=== PATIENT | female | born 1965 | race Caucasian/White ===

== ENCOUNTER 2016-12-10 19:21 | Inpatient (IN) | payer OTHER ==
[2016-12-10] MEDS ORDERED: NACL 0.9% 1000 ML 2,000 ML IV ONE (23:06)
[2016-12-10] MEDS ORDERED: REGLAN IV ONE (23:06)
--- NOTE | 2016-12-10 23:08 | Emergency Department Report ---
ED General Adult HPI - General Chief complaint: Seizure Stated complaint: SEIZURE Time Seen by Provider: 12/10/16 22:53 Source: patient, RN notes reviewed Mode of arrival: Stretcher Limitations: No Limitations - History of Present Illness Initial comments: This is a 51-year-old female. She is previously unknown to me. Has a past medical history of hypothyroidism, hypertension, anxiety. The patient is currently in a psychiatric hospital, for suicidal ideation. Apparently she tried to overdose because of a divorce. This was a few days ago. The patient was at her psychiatric facility today. The patient reports that she got dizzy, felt like the room was spinning, felt like she was going to pass out. Prior to this, she did not have any headache, neck pain, chest pain, abdominal pain or shortness of breath. There is no leg pain. There is no leg swelling. No recent trips greater than 4 hours. No recent hospital admissions. The patient reports that she is up-to-date with tetanus vaccinations. As per verbal report from her psychiatric sitter, it appeared like she was having a generalized tonic-clonic seizure with family's moving. The patient thinks that she bit her tongue but is not certain. She complains of right occipital scalp pain, and right-sided neck pain. There is no extremity weakness at this time. There is no saddle anesthesia. -: Sudden Location: right, upper extremity Severity scale (0 -10): 8 Quality: aching Consistency: now resolved Improves with: none Worsens with: none Associated Symptoms: syncope. denies: confusion - Related Data Home Medications Medication Instructions Recorded Confirmed Last Taken Clorazepate Dipotassium 3.75 mg PO DAILY 12/10/16 12/10/16 Unknown Cyanocobalamin (Vitamin B-12) 1,000 mcg PO DAILY 12/10/16 12/10/16 Unknown [B-12] Folic Acid [Folvite] 1 mg PO QDAY 12/10/16 12/10/16 Unknown Levothyroxine [Synthroid] 125 mcg PO QAM 12/10/16 12/10/16 Unknown Lisinopril [Zestril TAB] 40 mg PO QDAY 12/10/16 12/10/16 Unknown Allergies Allergy/AdvReac Type Severity Reaction Status Date / Time No Known Allergies Allergy Verified 12/10/16 22:01 ED Review of Systems ROS: Stated complaint: SEIZURE Other details as noted in HPI Constitutional: denies: fever Eyes: denies: vision change ENT: denies: epistaxis Respiratory: see HPI Cardiovascular: syncope Gastrointestinal: denies: abdominal pain, nausea, diarrhea Genitourinary: as per HPI Musculoskeletal: denies: back pain, joint swelling, arthralgia Skin: lesions. denies: rash Psychiatric: denies: homicidal thoughts ED Past Medical Hx - Past Medical History Previous Medical History?: Yes Hx Hypertension: Yes Additional medical history: HYPOTHYROID, ANXIETY - Surgical History Past Surgical History?: No - Social History Smoking Status: Former Smoker Substance Use Type: None - Medications Home Medications: Home Medications Medication Instructions Recorded Confirmed Last Taken Type Clorazepate Dipotassium 3.75 mg PO DAILY 12/10/16 12/10/16 Unknown History Cyanocobalamin (Vitamin B-12) 1,000 mcg PO DAILY 12/10/16 12/10/16 Unknown History [B-12] Folic Acid [Folvite] 1 mg PO QDAY 12/10/16 12/10/16 Unknown History Levothyroxine [Synthroid] 125 mcg PO QAM 12/10/16 12/10/16 Unknown History Lisinopril [Zestril TAB] 40 mg PO QDAY 12/10/16 12/10/16 Unknown History ED Physical Exam - General Limitations: No Limitations General appearance: alert, in no apparent distress - Head Head exam: Present: normocephalic, other (physical right-sided occipital hematoma. There are no obvious lacerations. Dried blood is noted.) - Eye Eye exam: Present: normal appearance, PERRL, EOMI. Absent: nystagmus - ENT ENT exam: Present: normal exam, normal orophraynx, mucous membranes moist, TM's normal bilaterally, normal external ear exam - Neck Neck exam: Present: normal inspection, tenderness (there is right-sided paraspinal tenderness. There is mild midline spinal tenderness. There are no step-offs.), full ROM. Absent: meningismus - Respiratory Respiratory exam: Present: normal lung sounds bilaterally. Absent: respiratory distress, wheezes, rales, rhonchi, stridor, chest wall tenderness, accessory muscle use, decreased breath sounds, prolonged expiratory - Cardiovascular Cardiovascular Exam: Present: normal rhythm, tachycardia, normal heart sounds. Absent: systolic murmur, diastolic murmur, rubs, gallop - GI/Abdominal GI/Abdominal exam: Present: soft, normal bowel sounds. Absent: distended, tenderness, guarding, rebound, rigid, pulsatile mass - Extremities Exam Extremities exam: Present: normal inspection, full ROM, normal capillary refill. Absent: tenderness, pedal edema, joint swelling, calf tenderness - Back Exam Back exam: Present: normal inspection, full ROM. Absent: tenderness, CVA tenderness (R), CVA tenderness (L), muscle spasm, paraspinal tenderness, vertebral tenderness - Neurological Exam Neurological exam: Present: alert, oriented X3, normal gait (there is no pass pointing. There is normal [id number]. Negative Romberg. Normal tandem gait. ), other (Extraocular movements intact. Tongue midline. No facial droop. Facial sensation intact to light touch in the V1, V2, V3 distribution bilaterally. 5 and 5 strength in 4 extremities.. Sensation is intact to light touch in 4 extremities.). Absent: motor sensory deficit - Psychiatric Psychiatric exam: Present: anxious. Absent: homicidal ideation, suicidal ideation - Skin Skin exam: Present: warm, dry, intact, normal color. Absent: rash ED Course Vital Signs 12/10/16 12/10/16 12/10/16 20:50 21:39 21:40 Temperature 98.3 F Pulse Rate 114 H 108 H Respiratory 16 13 10 L Rate Blood Pressure 153/94 Blood Pressure 154/96 [Right] O2 Sat by Pulse 97 98 99 Oximetry 12/10/16 12/10/16 12/10/16 21:44 21:50 22:00 Temperature 98.3 F Pulse Rate 114 H 120 H 124 H Respiratory 16 14 31 H Rate Blood Pressure 154/96 153/94 167/122 Blood Pressure [Right] O2 Sat by Pulse 97 98 99 Oximetry 12/10/16 12/10/16 12/10/16 22:10 22:20 22:30 Temperature Pulse Rate 118 H 108 H 110 H Respiratory 14 16 9 L Rate Blood Pressure 167/122 153/94 153/94 Blood Pressure [Right] O2 Sat by Pulse 97 97 97 Oximetry 12/10/16 12/10/16 12/10/16 22:40 22:50 23:00 Temperature Pulse Rate 112 H 109 H 125 H Respiratory 21 18 22 Rate Blood Pressure 153/94 153/94 153/94 Blood Pressure [Right] O2 Sat by Pulse 97 97 98 Oximetry 12/10/16 12/10/16 12/11/16 23:10 23:16 00:28 Temperature Pulse Rate 109 H 106 H 103 H Respiratory 16 18 18 Rate Blood Pressure 153/94 153/94 167/122 Blood Pressure [Right] O2 Sat by Pulse 97 98 97 Oximetry 12/11/16 12/11/16 12/11/16 00:30 00:40 00:50 Temperature Pulse Rate 100 H 89 98 H Respiratory 25 H 17 18 Rate Blood Pressure 140/90 140/90 140/90 Blood Pressure [Right] O2 Sat by Pulse 98 99 97 Oximetry 12/11/16 12/11/16 12/11/16 01:00 01:10 01:13 Temperature Pulse Rate 90 97 H Respiratory 14 13 16 Rate Blood Pressure 132/100 132/100 Blood Pressure [Right] O2 Sat by Pulse 98 100 98 Oximetry 12/11/16 12/11/16 12/11/16 01:20 01:44 01:50 Temperature Pulse Rate 119 H 90 101 H Respiratory 25 H 14 15 Rate Blood Pressure 132/100 132/100 132/100 Blood Pressure [Right] O2 Sat by Pulse 97 99 98 Oximetry 12/11/16 12/11/16 12/11/16 02:00 02:10 02:20 Temperature Pulse Rate 95 H 95 H 93 H Respiratory 13 16 10 L Rate Blood Pressure 132/100 132/100 132/100 Blood Pressure [Right] O2 Sat by Pulse 99 98 97 Oximetry 12/11/16 12/11/16 12/11/16 02:30 02:40 02:50 Temperature Pulse Rate 90 99 H 93 H Respiratory 17 15 15 Rate Blood Pressure 132/100 132/100 132/100 Blood Pressure [Right] O2 Sat by Pulse 97 98 96 Oximetry 12/11/16 12/11/16 12/11/16 03:00 03:10 03:20 Temperature Pulse Rate 95 H 97 H 97 H Respiratory 18 14 18 Rate Blood Pressure 132/100 132/100 132/100 Blood Pressure [Right] O2 Sat by Pulse 96 98 97 Oximetry 12/11/16 12/11/16 12/11/16 03:30 03:46 03:50 Temperature Pulse Rate 96 H 98 H 104 H Respiratory 16 18 25 H Rate Blood Pressure 132/100 132/100 125/91 Blood Pressure [Right] O2 Sat by Pulse 97 98 98 Oximetry 12/11/16 04:00 Temperature Pulse Rate Respiratory 11 L Rate Blood Pressure 128/98 Blood Pressure [Right] O2 Sat by Pulse 99 Oximetry - Reevaluation(s) Reevaluation #1: 12/10/16 23:43 Differential diagnosis: Intracranial injury, cervical spine injury, structural cardiac disease, arrhythmia, acute coronary syndrome, medication side effect, seizure, pseudoseizure, scalp abrasion, pneumonia, urinary tract infection Assessment and plan: 51-year-old female with seizure versus syncope. There are no pulmonary embolus or DVT risk factors, seems low risk by well's criteria. She has a GCS of 15, with an NIH score of 0. She has some neck pain and scalp pain. CT scan of the brain as cervical spine are ordered. Laboratory studies ordered. Toxicology studies ordered. Patient is clinically sober. She is currently with a 1013 at this time. Reevaluation #2: 12/11/16 01:16 ct head negative, ct cervical spine negative K: 3.5 Cl: 102.7 Dr Ellis accepts patient to his service 12/11/16 06:03 ED Medical Decision Making - Lab Data Result diagrams: 12/10/16 23:23 12/10/16 23:23 Vital Signs 12/10/16 12/10/16 12/10/16 20:50 21:39 21:40 Temperature 98.3 F Pulse Rate 114 H 108 H Respiratory 16 13 10 L Rate Blood Pressure 153/94 Blood Pressure 154/96 [Right] O2 Sat by Pulse 97 98 99 Oximetry 12/10/16 12/10/16 12/10/16 21:44 21:50 22:00 Temperature 98.3 F Pulse Rate 114 H 120 H 124 H Respiratory 16 14 31 H Rate Blood Pressure 154/96 153/94 167/122 Blood Pressure [Right] O2 Sat by Pulse 97 98 99 Oximetry 12/10/16 12/10/16 12/10/16 22:10 22:20 22:30 Temperature Pulse Rate 118 H 108 H 110 H Respiratory 14 16 9 L Rate Blood Pressure 167/122 153/94 153/94 Blood Pressure [Right] O2 Sat by Pulse 97 97 97 Oximetry 12/10/16 12/10/16 12/10/16 22:40 22:50 23:00 Temperature Pulse Rate 112 H 109 H 125 H Respiratory 21 18 22 Rate Blood Pressure 153/94 153/94 153/94 Blood Pressure [Right] O2 Sat by Pulse 97 97 98 Oximetry 12/10/16 23:10 Temperature Pulse Rate 109 H Respiratory 16 Rate Blood Pressure 153/94 Blood Pressure [Right] O2 Sat by Pulse 97 Oximetry Labs 12/10/16 12/10/16 22:08 23:23 WBC 11.8 H RBC 3.47 L Hgb 12.7 Hct 37.9 MCV 109 H MCH 37 H MCHC 34 RDW 15.2 Plt Count 273 Lymph % (Auto) 12.5 L [place] % (Auto) 4.9 Eos % (Auto) 0.3 Baso % (Auto) 0.2 Lymph # 1.5 [place] # 0.6 Eos # 0.0 Baso # 0.0 Seg Neutrophils % 82.1 H Seg Neutrophils # 9.7 H POC Glucose 115 H - EKG Data 12/10/16 23:45 Normal sinus, 92 bpm, normal axis, QTC 469 ms, biphasic T-wave in V2, poor R- wave progression, abnormal EKG, not morphologically consistent with STEMI. - Radiology Data Radiology results: image reviewed interpreted by me: X-ray of the chest is negative for acute disease Critical care attestation.: If time is entered above; I have spent that time in minutes in the direct care of this critically ill patient, excluding procedure time. ED Disposition Clinical Impression: Syncope, Blunt head injury Disposition: OP ADMITTED IP TO THIS HOSP Is pt being admited?: Yes Condition: Good
[2016-12-10 23:36] LABS: Basophils % (Auto) 0.2 % (0.0-1.8); Eosinophils % (Auto) 0.3 % (0.0-4.3); Hematocrit 37.9 % (30.3-42.9); Hemoglobin 12.7 gm/dl (10.1-14.3); Mean Corpuscular HGB Conc 34 % (30-34); Mean Corpuscular Hemoglobin 37 pg (28-32); Mean Corpuscular Volume 109 fl (79-97); Platelet Count 273 K/mm3 (140-440); Red Blood Count 3.47 M/mm3 (3.65-5.03); Red Cell Distribution Width 15.2 % (13.2-15.2); White Blood Count 11.8 K/mm3 (4.5-11.0)
[2016-12-10 23:50] LABS: INR 0.94 (0.87-1.13)
[2016-12-10 23:57] LABS: Alanine Aminotransferase 16 units/L (7-56); Albumin 3.9 g/dL (3.9-5); Albumin/Globulin Ratio 1.3 %; Alkaline Phosphatase 130 units/L (35-129); Anion Gap 20 mmol/L; Bilirubin,Total 0.9 mg/dL (0.1-1.2); Blood Urea Nitrogen 4 mg/dL (7-17); Carbon Dioxide 22 mmol/L (22-30); Chloride 102.7 mmol/L (98-107); Glucose 112 mg/dL (65-100); Potassium 3.5 mmol/L (3.6-5.0); Sodium 141 mmol/L (137-145); Total Protein 6.9 g/dL (6.3-8.2)
[2016-12-11 00:03] LABS: Urine Drugs of Abuse Note Disclamer
[2016-12-11 00:28] LABS: Bilirubin,Urine NEG (Negative); Blood,Urine NEG (Negative); Ketones,Urine 20 mg/dL (Negative); Leukocyte Esterase,Urine NEG (Negative); Nitrite,Urine NEG (Negative); Protein,Urine <15 mg/dL mg/dL (Negative); RBC,Urine < 1.0 /HPF (0.0-6.0); Urobilinogen,Urine < 2.0 mg/dL (<2.0); WBC,Urine < 1.0 /HPF (0.0-6.0)
--- NOTE | 2016-12-11 00:54 | Cat Scan Report ---
FINAL REPORT EXAM: CT HEAD/BRAIN WO CON HISTORY: Syncope TECHNIQUE: Noncontrast CT axial images of the brain. PRIORS: None. FINDINGS: No parenchymal mass, mass effect, hemorrhage, midline shift or hydrocephalus. No evidence of acute cortical infarct. No abnormal, extra-axial fluid or air collection. Osseous calvarium grossly intact. Mild soft tissue edema and possible contusion in the right parieto-occipital scalp near the vertex. IMPRESSION: 1. No acute intracranial findings.
--- NOTE | 2016-12-11 01:07 | Cat Scan Report ---
FINAL REPORT EXAM: CT CERVICAL SPINE WO CON HISTORY: Syncope FALL TECHNIQUE: Spiral CT scanning of the cervical spine, with axial images and multiplanar reformations. PRIORS: None. FINDINGS: Mild dextroconvex curvature may be positional versus soft tissue spasm. Incomplete segmentation or congenital block vertebra in the C4-5 level. Multilevel degenerative disc disease and spondylosis. No acute compression deformity or gross malalignment of cervical vertebral bodies. No acute fracture identified. No acute, osseous central spinal canal encroachment. Paraspinal soft tissues grossly unremarkable. IMPRESSION: 1. No acute compression deformity or apparent fracture in the cervical spine. 2. Degenerative spondylosis.
--- NOTE | 2016-12-11 03:53 | History and Physical Report ---
CHIEF COMPLAINT: Syncopal attack. Other complaint includes seizure activity. HISTORY OF PRESENT ILLNESS: The patient is a 51-year-old female in the psychiatric facility because of suicidal ideation following emotional disturbances that she is sustaining because of going through divorce. The patient said he started feeling dizzy while standing up and then started feeling sensation of vertigo and eventually fell to the ground and passed out for about 5 minutes during which she said that she was seen shaking in a tonic-clonic form and the patient said she thought she bit her tongue. There was no history of urinary incontinence, no history of fever or chills. No history of chest pain. No history of nausea, vomiting and the patient eventually recovered and was brought to the Emergency Room. She denies history of similar symptoms in the past and denies history of fever before this syncopal episode. PAST MEDICAL HISTORY: Pertinent for hypertension, hypothyroidism, anxiety disorder. PAST SURGICAL HISTORY: Unremarkable. FAMILY HISTORY: Noncontributory. SOCIAL HISTORY: The patient is currently in a psychiatric facility. She used to smoke, but does not smoke currently, drinks alcohol occasionally and does not use illicit drugs. MEDICATIONS: The patient is on clorazepate 3.75 mg by mouth daily, cyanocobalamin 1000 mcg by mouth daily, folic acid 1 mg by mouth daily, levothyroxine 125 mcg by mouth every morning and lisinopril 40 mg by mouth daily. ALLERGIES: There are no known drug allergies. REVIEW OF SYSTEMS: CONSTITUTIONAL: There is no fever, no chills, no diaphoresis. HEENT: There is no headache or sore throat. CARDIOVASCULAR SYSTEM: There is no chest pain, orthopnea. RESPIRATORY: There is no shortness of breath or cough. GASTROINTESTINAL SYSTEM: There is no nausea, no vomiting, no abdominal pain, diarrhea or constipation. NEUROLOGICAL SYSTEM: Syncopal episode noted. Seizure activity noted. Loss of consciousness noted. MUSCULOSKELETAL SYSTEM: There is no joint pain or swelling. DERMATOLOGICAL SYSTEM: There is no skin rash or itching. GENITOURINARY SYSTEM: There is no dysuria, hematuria or flank pain. Rest of system review is normal. PHYSICAL EXAMINATION: GENERAL: At the time of exam, the patient was found to be alert, oriented x 3 and not in acute distress. VITAL SIGNS: Shows normal temperature with pulse of 97, respirations of 13, O2 sat of 100%, blood pressure 132/100. HEENT: Shows pupils to be equal, round, reactive to light and accommodation. Extraocular muscles are intact. NECK: Supple with no JVD or carotid bruit. CARDIOVASCULAR SYSTEM: Show first and second heart sounds with no gallops or murmur. RESPIRATORY SYSTEM: Show good air entry on both sides with no abnormal breath sounds. GASTROINTESTINAL SYSTEM: Show abdomen to be full, soft, nontender with no organomegaly or rigidity. NEUROLOGICAL: Showed no focal deficit. MUSCULOSKELETAL SYSTEM: Showed no joint swelling or tenderness. DERMATOLOGICAL SYSTEM: Show no skin rash. GENITOURINARY: Showing no costovertebral angle tenderness. PERTINENT LABORATORY DATA AND IMAGING STUDIES: The patient has CBC done with slightly elevated white count of 11,800 with normal hemoglobin and normal hematocrit. The patient's CBC differential showed elevated segmented level and coagulation study was normal. Chemistry shows normal electrolytes with unremarkable renal function test and cardiac enzymes shows elevated total creatine kinase with normal troponin. The patient's TSH level is high with a value of 13.38. Urinalysis was unremarkable. IMAGING STUDIES: The patient has CT of the head done, which was read as showing no acute intracranial lesion. Also, the patient has cervical spine CT done that shows only degenerative spondylosis with no fracture or deformity seen. DIAGNOSES: 1. Syncopal attack. 2. Seizure disorder/Attack. PLAN: The patient will be admitted to medical floor. We will have 2D echo done in the morning. We will have cardiac enzymes checked q. 6 hours x 2 more levels. The patient will be on playground monitor. We will also have a bilateral carotid Doppler done in the morning. The patient will be on seizure precaution. DVT prophylaxis will be through sequential compressive device. The patient will have Neurology consult with Dr. Samayoa as she is in the morning and will be on p.r.n. medications like Tylenol by mouth for fever, headache and IV Zofran 4 mg every 6 hours for nausea and vomiting. The patient will have her home medication reconciled and applied accordingly and will be on IV normal saline at 75 mL an hour. JOB# [id number] OCN/NTS MTDD
[2016-12-11] MEDS: ZOFRAN IV PRN ×2 (05:09→18:52)
[2016-12-11] MEDS: SYNTHROID PO SCH (05:09)
[2016-12-11] MEDS: TYLENOL PO PRN ×2 (05:58→19:53)
--- NOTE | 2016-12-11 07:32 | XRay Report ---
Single view chest: History: Syncope, PNA. Findings: Normal cardiomediastinal silhouette. Trachea is midline. No consolidation, pneumothorax or pleural effusion. Impression: No acute cardiopulmonary findings. This
[2016-12-11 08:08] LABS: Creatine Kinase MB 2.9 ng/mL (0.0-4.0)
[2016-12-11 08:09] LABS: Creatine Kinase 233 units/L (30-135)
--- NOTE | 2016-12-11 09:20 | Admit Criteria Form ---
Admission Criteria Documentation: SYNCOPE Clinical Indications for Admission to Inpatient Care ( Place 'X' for any and all applicable criteria): Admission is indicated for syncope and ANY ONE of the following (1)(2)(3)(4)(5) (6)(7) : [X]I. Inpatient admission required rather than observation care (Also use Syncope: Observation Care Criteria as appropriate) because of ANY ONE of the following: [ ]a) Hemodynamic instability that is severe or persistent [ ]b) Cardiac arrhythmias of immediate concern identified or strongly suspected (eg, needs electrophysiologic study) [ ]c) Acute coronary syndrome identified (Also use Myocardial Infarction or Angina Criteria form ) [ ]d) Structural cardiac disorder (eg, aortic stenosis) suspected as cause that requires immediate correction [ ]e) Respiratory symptoms (eg, dyspnea, tachypnea) that are severe or persistent [ ]f) Neurologic signs or symptoms that are severe or persistent ( eg, stroke, seizures, altered mental status) [ ]g) Severe electrolyte abnormalities requiring inpatient care [ ]h) Supplemental oxygen or respiratory treatment for over 24 hrs that are performable only in acute inpatient setting [ ]i) IV fluid to replace significant ongoing (eg, for over 24 hrs ) losses (>3 L/m2 per day) [ ]j) Continuous intravenous infusion of anticoagulation, platelet inhibitor, vasoactive, or antiarrhythmic medication(15)(16) [ ]k) Pulmonary artery catheter monitoring [ ]l) Temporary pacemaker placement(17) [ ]m) Emergent cardioversion(18) [X]n) Other conditions, treatment or monitoring requiring inpatient admission [ ]II. Suspicion of imminently dangerous cause (eg, rare causes like pericardial tamponade, pulmonary embolism) [ ]III. Syncope causing severe injury requiring hospitalization Extended stay beyond goal length of stay may be needed for(28) [ ]a) Dangerous arrhythmia(15)(23)(27)(29) [ ]b) Myocardial ischemia [ ]c) Seizure disorder [ ]d) Syncope-related injuries The original [employer] content created by [employer] has been revised. The portions of the content which have been revised are identified through the use of italic text or in bold, and [employer] has neither reviewed nor approved the modified material. All other unmodified content is copyright [email or web address]. Please see references footnoted in the original [facility] edition 2016 Admission Criteria Met: Yes
[2016-12-11] MEDS: VITAMIN B-12 PO SCH (11:29)
[2016-12-11] MEDS: TRANXENE PO SCH (11:30)
[2016-12-11] MEDS: FOLVITE PO SCH (11:30)
[2016-12-11] MEDS: ZESTRIL PO SCH (11:32)
--- NOTE | 2016-12-11 12:05 | Consultation ---
History of Present Illness Consult date: 12/11/16 Requesting physician: DAVID MCMILLAN Reason for Consult: seizure like activity Chief complaint: passed out History of present illness: 51 YO F Hx BZD dependence of xanax currently being Tx @ Detox center brought to ED on 12/10 for syncope assoc w/ motor convulsive activity. Last dose of Xanax was 2-3 days prior. She has felt generally unwell including lightheadedness and feeling faint. @ 4 PM while standing she apparently fell, lost consciosuness for 3-5 mins and had reported "sz like activity." She bit her tongue but no incontinence. There were no clear aggravating, relieving or temporal factors otherwise. Severity limited consciousness. Past History Past Medical History: other (BZD dependence) Past Surgical History: No surgical history Social history: single, Lives alone, prescription drug abuse. denies: IV drug use Family history: no significant family history Medications and Allergies Allergies Allergy/AdvReac Type Severity Reaction Status Date / Time No Known Allergies Allergy Verified 12/10/16 22:01 Home Medications Medication Instructions Recorded Confirmed Last Taken Type Clorazepate Dipotassium 3.75 mg PO DAILY 12/10/16 12/10/16 Unknown History Cyanocobalamin (Vitamin B-12) 1,000 mcg PO DAILY 12/10/16 12/10/16 Unknown History [B-12] Folic Acid [Folvite] 1 mg PO QDAY 12/10/16 12/10/16 Unknown History Levothyroxine [Synthroid] 125 mcg PO QAM 12/10/16 12/10/16 Unknown History Lisinopril [Zestril TAB] 40 mg PO QDAY 12/10/16 12/10/16 Unknown History Active Meds: Active Medications Acetaminophen (Tylenol) 650 mg PO Q4H PRN PRN Reason: For Pain/Fever/Headache Last Admin: 12/11/16 05:58 Dose: 650 mg Clorazepate Dipotassium (Tranxene) 3.75 mg PO DAILY [facility] Last Admin: 12/11/16 11:30 Dose: 3.75 mg Cyanocobalamin (Vitamin B-12) 1,000 mcg PO DAILY [facility] Last Admin: 12/11/16 11:29 Dose: 1,000 mcg Folic Acid (Folvite) 1 mg PO QDAY [facility] Last Admin: 12/11/16 11:30 Dose: 1 mg Levothyroxine Sodium (Synthroid) 125 mcg PO 0600 [facility] Last Admin: 12/11/16 05:09 Dose: 125 mcg Lisinopril (Zestril) 40 mg PO QDAY [facility] Last Admin: 12/11/16 11:32 Dose: 40 mg Ondansetron HCl (Zofran) 4 mg IV Q6H PRN PRN Reason: Nausea And Vomiting Last Admin: 12/11/16 05:09 Dose: 4 mg Review of Systems All systems: negative Constitutional: chills Neurological: head injury, weakness (diffuse), syncope, tremors (b/l UE), headaches, balance difficulties, no paralysis, no parathesias, no numbness, no tingling, no ataxia, no change in mentation, no confusion, no changes in smell/ taste, no motor disturbance, no sensory deficit, no double vision, no loss of vision, no burning pain, no paralysis, no spasticity Psychiatric: anxiety, sleep disturbances, insomnia, anxiety attacks, difficulties concentrating, irritability, no suicidal ideation, no disorientation, no hallucinations, no paranoia Physical Examination - Vital Signs Vital Signs: Vital Signs Temp Pulse Resp BP Pulse Ox 98.3 F 114 H 16 154/96 97 12/10/16 20:50 12/10/16 20:50 12/10/16 20:50 12/10/16 20:50 12/10/16 20:50 - Constitutional General appearance: uncomfortable, acutely ill - EENT EENT: Present: ATNC, PERRL, mucous membranes moist, hearing intact, vision intact - Respiratory Respiratory: Present: chest non-tender, normal breath sounds, no respiratory distress - Cardiovascular Cardiovascular: Present: regular rate Extremities: Present: no peripheral edema bilatateraly, no clubbing, cyanosis, no inflammation, no ischemia or petechiae - Gastrointestinal Gastrointestinal: Present: normoactive bowel sounds, soft, non-distended - Integumentary Integumentary: Present: normal - Neurologic Cranial nerve examination: PERRL, EOMI, VFF, V1/V2/V3 grossly intact, face symmetric, tongue midline, intact, intact shoulder shrug, intact cough reflex, Intact Vestibulo-ocular r, intact corneal reflex, normal palatal elevation Speech examination: intact Sensorimotor examination: intact, other (tremor b/l UE fine high frequnecy) Detailed motor examination: full strength in all connor Motor examination - right side: 5/5: biceps, triceps, wrist flexion, wrist extension, senior erp consultant, hip flexors, knee extensors, dorsiflexion, toe extension (EHL) , plantarflexion Motor examination - left side: 5/5: biceps, triceps, wrist flexion, wrist extension, senior erp consultant, hip flexors, knee extensors, dorsiflexion, toe extension (EHL) , plantarflexion Detailed sensory examination: intact, light touch, temperature Reflex and gait examination: intact Reflexes: 2+: ankle, bicep, knee, tricep - Musculoskeletal Musculoskeletal: Present: no fluid collection, no pain, normal range of motion - Psychiatric Psychiatric: Present: cooperative, other (anxious, psychomotor agitation) Results - Laboratory Findings CBC and BMP: 12/10/16 23:23 12/10/16 23:23 Abnormal Lab Findings: Abnormal Labs 12/11/16 06:09 Total Creatine Kinase 233 H Assessment and Plan 51 YO F Hx BZD dependence of Xanax currently being Tx @ Detox center placed on Clorazepate and taken off Xanax completely 2-3 days prior to presentation who had witnessed syncope on 12/10 assoc w/ premonitory presyncopal sx while standing but assoc w/ reported motor convulsive activity, L lateral tongue laceration and ? post ictal state for approx 5 mins. There was no incontinence. Neuro exam nonfocal aside from psychomotor agitation, mild vasomotor instablity and diffuse high frequency tremor. No baseline seizure risk factors. I suspect pt is actively withdrawing from BZD which has caused syncope vs. provoked seizure. CTH neg. Elevated TSH. TTE neg. Plan and Recommendation: 1. Telemetry bed w/ Q4 hour neuro checks & Sz precautions 2. Labs: Serum/Urine Tox, UA/UCx, Electrolytes especially Na, Ca, Mg, and Glucose, TSH, 3. AED therapy: No indication for AED therapy beyond resumption of BZD therapy. Pt may likely need return to prior home BZD dosing and re-set BZD taper to occur more slowly. Will defer the specifics of this regimen to medical/ psych/detox services 4. Avoid meds that can lower sz threshold e.g. Tramadol, fluroquinolones, carbapenems 5. I will not recommend driving cessation @ this time as event was likely provoked from BZD withdrawal unless recent sz occurs. Pt advised to avoid unsupervised activity particularly around water or heights 6. Neurologically clear for discharge once resolved fully to baseline w/o recurrent seizure for 24 hrs. 7. Follow up as outpt with Neurology
[2016-12-11 17:13] LABS: Creatine Kinase MB 3.4 ng/mL (0.0-4.0)
[2016-12-11 17:14] LABS: Creatine Kinase 288 units/L (30-135)
[2016-12-11] MEDS ORDERED: APRESOLINE IV PRN (18:42)
[2016-12-11] MEDS ORDERED: ATIVAN IV NR (18:45)
[2016-12-11] MEDS: KEPPRA PO SCH (21:11)
[2016-12-12] MEDS: TYLENOL PO PRN ×3 (03:31→20:59)
[2016-12-12] MEDS: SYNTHROID PO SCH (07:20)
[2016-12-12] MEDS: FOLVITE PO SCH (09:48)
[2016-12-12] MEDS: KEPPRA PO SCH ×2 (09:49→20:59)
[2016-12-12] MEDS: ZESTRIL PO SCH (09:49)
[2016-12-12] MEDS: VITAMIN B-12 PO SCH (09:49)
[2016-12-12] MEDS: TRANXENE PO SCH ×2 (09:50→09:52)
--- NOTE | 2016-12-12 14:48 | Consultation ---
History of Present Illness - Reason for Consult Consult date: 12/12/16 Reason for consult: psychiatric evaluation - Chief Complaint Chief complaint: "I had a seizure" Ms. Marquis is a 51-year-old white female has been admitted to the hospital after having a seizure. At the time of the seizures she was admitted to the inpatient psychiatric facility at [facility] and was there for one day. She was there for the treatment of benzodiazepine and alcohol withdrawal, depression, and anxiety. She reports not feeling well and then was told she had a seizure and fell and hit her head, sustaining a concussion. She is being followed by neurology. She is now on Keppra. She is also on Tranxene 3.75 mg 3 times a day for the treatment of benzodiazepine withdrawal. Less than a week ago she took several Xanax and drank vodka in a suicide attempt. The precipitating factor was that her informed her he her. This was sudden news start her. She had been experiencing depression and anxiety for 5 years. She reports it began after her brother and aunt by suicide. Primary symptoms include depressed mood, anhedonia, decreased motivation, panic attacks, poor sleep and difficulty with personal relationships. Her anxiety and depression were being managed by her primary care provider. She has been on Xanax for 5 years and has had the dose gradually increased as it would lose its effectiveness until the dose was increased. Recently she was on Xanax 2 mg 3 times a day. She began to wean herself down and in the midst of this time she took the overdose with alcohol. She denies regular alcohol use. Reports drinking 2 glasses of wine every Thursday. She has been attending individual counseling. She has been taking Prozac 40 mg daily for the treatment of depression and anxiety She is currently not experiencing signs or symptoms of withdrawal from benzodiazepines or alcohol. She reports having a seizure the previous day. Medications and Allergies Allergies Allergy/AdvReac Type Severity Reaction Status Date / Time No Known Allergies Allergy Verified 12/10/16 22:01 Home Medications Medication Instructions Recorded Confirmed Last Taken Type Clorazepate Dipotassium 3.75 mg PO DAILY 12/10/16 12/10/16 Unknown History Cyanocobalamin (Vitamin B-12) 1,000 mcg PO DAILY 12/10/16 12/10/16 Unknown History [B-12] Folic Acid [Folvite] 1 mg PO QDAY 12/10/16 12/10/16 Unknown History Levothyroxine [Synthroid] 125 mcg PO QAM 12/10/16 12/10/16 Unknown History Lisinopril [Zestril TAB] 40 mg PO QDAY 12/10/16 12/10/16 Unknown History Active Meds: Active Medications Acetaminophen (Tylenol) 650 mg PO Q4H PRN PRN Reason: For Pain/Fever/Headache Last Admin: 12/12/16 03:31 Dose: 650 mg Clorazepate Dipotassium (Tranxene) 3.75 mg PO DAILY [facility] Last Admin: 12/12/16 09:52 Dose: 3.75 mg Cyanocobalamin (Vitamin B-12) 1,000 mcg PO DAILY [facility] Last Admin: 12/12/16 09:49 Dose: 1,000 mcg Folic Acid (Folvite) 1 mg PO QDAY [facility] Last Admin: 12/12/16 09:48 Dose: 1 mg Hydralazine HCl (Apresoline) 10 mg IV Q6H PRN PRN Reason: SBP > 160 Last Admin: 12/11/16 18:52 Dose: 10 mg Levetiracetam (Keppra) 500 mg PO BID [facility] Last Admin: 12/12/16 09:49 Dose: 500 mg Levothyroxine Sodium (Synthroid) 125 mcg PO 0600 [facility] Last Admin: 12/12/16 07:20 Dose: 125 mcg Lisinopril (Zestril) 40 mg PO QDAY [facility] Last Admin: 12/12/16 09:49 Dose: 40 mg Ondansetron HCl (Zofran) 4 mg IV Q6H PRN PRN Reason: Nausea And Vomiting Last Admin: 12/11/16 18:52 Dose: 4 mg Past psychiatric history - Past Medical History Past Medical History: No medical history (prior to this hospitalization) Past Surgical History: No surgical history - past Psychiatric treatment and history Psych: Anxiety, Depression - Social History Social history: , other (has family support. Denies recreational drug use. Unemployed) Mental Status Exam - Vital signs Last Vital Signs Temp 97.7 F 12/12/16 08:00 Pulse 90 12/12/16 09:49 Resp 20 12/12/16 08:00 BP 118/78 12/12/16 09:49 Pulse Ox 98 12/12/16 08:00 - Exam Orientation: time, place, person Affect: depressed, anxious Mood: congruent with affect Thought content: other (no current suicidal ideation. No homicidal ideation) Thought Process: Intact Perceptions: none Speech: normal rate and pattern Concentration: focused Motor activity: normal Level of consciousness: alert Memory: Intact Sleep Symptoms: Difficulty Falling Asleep Appetite: decreased Interaction: cooperative Results Result Diagrams: 12/10/16 23:23 12/10/16 23:23 Abnormal lab results 12/11/16 Range/Units 12:00 Total Creatine Kinase 288 H (30-135) units/L All other labs normal. Assessment and Plan Assessment and plan: Impression: Recent benzodiazepine withdrawal which included seizures. She is requiring detox. She has also had a recent suicide attempt and significant psychosocial stressor. She was on 1013 prior to going to [facility]. She currently denies suicidal ideation and is remorseful for her action. She expresses her desire to return home to her grandson. She is fearful about the long-term effects of her benzodiazepine use. She says she wants to be healthy again. She plans to work on her anxiety, depression/grief in an outpatient setting. She discussed how she was not aware of the consequences of long-term benzodiazepine use. Benzodiazepine use disorder Major depressive disorder Anxiety disorder unspecified Plan: Continue Prozac 40 mg daily for the treatment of depression and anxiety Recommend CIWA protocol, monitoring only at this point Continue Tranxene. She is not experiencing signs of withdrawal at this time She'll be evaluated by psychiatry tomorrow She is currently not a threat of harm to herself but appears to need further monitoring for withdrawal Considering her long-term use of Xanax, it is recommended that she be monitored over the next 3-4 days for signs of withdrawal Seizure protocol is already in place Plan for outpatient referrals to mental health programs
--- NOTE | 2016-12-12 17:11 | Progress Note ---
Assessment and Plan Assessment and plan: 51 yo female with benzodiazepine dependence being treated at the detox center brought to ED a syncopal episode associated with motor convulsive activity during which she bit her tongue but had no incontinence 1. Seizure Most likely secondary to BZD withdrawal UDS positive only for benzos Electrolytes within normal limits Evaluated by neurology and AED not recommended; psych should consider a slower taper off benzos 2. BXD dependence Treated by psychiatry Currently on Tranxene 3. Hypothyroidism TSH elevated at 13.3 Check FT4 and increase levothyroxine dose 4. Hypertension No home medications listed BP within normal limits on no medications Monitor 5. DVT prophylaxis History Interval history: bit her tongue yesterday during the seizure and now is complaining of pain; otherwise doing well Hospitalist Physical - Constitutional Vitals: Temp Pulse Resp BP Pulse Ox 97.7 F 90 20 118/78 98 12/12/16 08:00 12/12/16 09:49 12/12/16 08:00 12/12/16 09:49 12/12/16 08:00 General appearance: Present: no acute distress, well-nourished - EENT Eyes: Present: PERRL, EOM intact. Absent: scleral icterus, conjunctival injection - Neck Neck: Present: supple, normal ROM. Absent: masses or JVD - Respiratory Respiratory effort: normal Respiratory: bilateral: CTA, negative: rhonchi, wheezing - Cardiovascular Rhythm: regular Heart Sounds: Present: S1 & S2. Absent: systolic murmur - Extremities Extremities: no ischemia - Abdominal General gastrointestinal: soft, non-tender, non-distended, normal bowel sounds - Integumentary Integumentary: Present: warm, dry. Absent: jaundice, rash - Psychiatric Psychiatric: cooperative - Neurologic Neurologic: CNII-XII intact, no focal deficits Results - Labs CBC & Chem 7: 12/10/16 23:23 12/10/16 23:23 Labs: Laboratory Last Values WBC 11.8 K/mm3 (4.5-11.0) H 12/10/16 23:23 RBC 3.47 M/mm3 (3.65-5.03) L 12/10/16 23:23 Hgb 12.7 gm/dl (10.1-14.3) 12/10/16 23:23 Hct 37.9 % (30.3-42.9) 12/10/16 23:23 MCV 109 fl (79-97) H 12/10/16 23: MCH 37 pg (28-32) H 12/10/16 23: MCHC 34 % (30-34) 12/10/16 23: RDW 15.2 % (13.2-15.2) 12/10/16 23: Plt Count 273 K/mm3 (140-440) 12/10/16 23: Lymph % (Auto) 12.5 % (13.4-35.0) L 12/10/16 23: [place] % (Auto) 4.9 % (0.0-7.3) 12/10/16 23: Eos % (Auto) 0.3 % (0.0-4.3) 12/10/16: Baso % (Auto) 0.2 % (0.0-1.8) 12/10/16 23: Lymph # 1.5 K/mm3 (1.2-5.4) 12/10/16 23: [place] # 0.6 K/mm3 (0.0-0.8) 12/10/16 23: Eos # 0.0 K/mm3 (0.0-0.4) 12/10/16 23: Baso # 0.0 K/mm3 (0.0-0.1) 12/10/16 23: Seg Neutrophils % 82.1 % (40.0-70.0) H 12/10/16 23: Seg Neutrophils # 9.7 K/mm3 (1.8-7.7) H 12/10/16 23: PT 12.5 Sec. (12.2-14.9) 12/10/16 23: INR 0.94 (0.87-1.13) 12/10/16 23: Sodium 141 mmol/L (137-145) 12/10/16 23:23 Carbon Dioxide 22 mmol/L (22-30) 12/10/16 23: BUN 4 mg/dL (7-17) L 12/10/16 23: Creatinine 0.5 mg/dL (0.7-1.2) L 12/10/16 23: Estimated GFR > 60 ml/min 12/10/16 23: BUN/Creatinine Ratio 8.00 % 12/10/16 23:23 Glucose 112 mg/dL (65-100) H 12/10/16 23:23 POC Glucose 115 (70-105) H 12/10/16 22:08 Calcium 9.0 mg/dL (8.4-10.2) 12/10/16 23: Magnesium 2.0 mg/dL (1.7-2.3) 12/10/16 23: Total Bilirubin 0.9 mg/dL (0.1-1.2) 12/10/16 23: AST 31 units/L (5-40) 12/10/16 23: ALT 16 units/L (7-56) 12/10/16 23: Alkaline Phosphatase 130 units/L (35-129) H 12/10/16: Total Creatine Kinase 288 units/L (30-135) H 12/11/16 12:00 CK-MB (CK-2) 3.4 ng/mL (0.0-4.0) 12/11/16 12:00 CK-MB (CK-2) Rel Index 1.1 (0-4) 12/11/16 12:00 Troponin T < 0.010 ng/mL (0.00-0.029) 12/11/16 12:00 Total Protein 6.9 g/dL (6.3-8.2) 12/10/16: Albumin 3.9 g/dL (3.9-5) 12/10/16 23: Albumin/Globulin Ratio 1.3 % 12/10/16: TSH 13.380 mlU/mL (0.270-4.200) H 12/10/16 23: Urine Color Yellow (Yellow) 12/10/16 23:30 Urine Turbidity Clear (Clear) 12/10/16 23: Urine pH 7.0 (5.0-7.0) 12/10/16 23: Ur Specific [place] 1.005 (1.003-1.030) 12/10/16 23: Urine Protein <15 mg/dl mg/dL (Negative) 12/10/16 23:30 Urine Glucose (UA) Neg mg/dL (Negative) 12/10/16 23: Urine Ketones 20 mg/dL (Negative) 12/10/16 23:30 Urine Blood Neg (Negative) 12/10/16 23:30 Urine Nitrite Neg (Negative) 12/10/16 23:30 Urine Bilirubin Neg (Negative) 12/10/16 23:30 Urine Urobilinogen < 2.0 mg/dL (<2.0) 12/10/16 23:30 Ur Leukocyte Esterase Neg (Negative) 12/10/16 23:30 Urine WBC (Auto) < 1.0 /HPF (0.0-6.0) 12/10/16 23:30 Urine RBC (Auto) < 1.0 /HPF (0.0-6.0) 12/10/16 23:30 U Epithel Cells (Auto) 1.0 /HPF (0-13.0) 12/10/16 23:30 Urine Opiates Screen Presumptive negative 12/10/16 23:30 Urine Methadone Screen Presumptive negative 12/10/16 23:30 Ur Barbiturates Screen Presumptive negative 12/10/16 23:30 Ur Phencyclidine Scrn Presumptive negative 12/10/16 23:30 Ur Amphetamines Screen Presumptive negative 12/10/16 23:30 U Benzodiazepines Scrn Presumptive positive 12/10/16 23:30 Urine Cocaine Screen Presumptive negative 12/10/16 23:30 U Marijuana (THC) Screen Presumptive negative 12/10/16 23:30 Drugs of Abuse Note Disclamer 12/10/16 23:30 - Imaging and Cardiology Chest x-ray: image reviewed CT Scan - head: report reviewed Venous US: report reviewed
--- NOTE | 2016-12-12 22:06 | Vascular Lab Report ---
CAROTID DUPLEX STUDY: RIGHT PSVEDV CCA PROX: 9328 CCA DIST: 6928 ICA PROX: 7522 ICA MID: 9247 ICA DIST:[id number] ECA: 95 VERT: 51 22 LEFT PSVEDV CCA PROX: 9328 CCA DIST: 9126 ICA PROX: 5321 ICA MID: 9145 ICA DIST: 7839 ECA: 83 VERT: 63 29 REASON FOR EXAM: Carotid artery stenosis/syncope. COMMENTS ON THE RIGHT: Doppler frequency analysis is consistent with 16 to 49 percent diameter reduction of the internal carotid artery. Minimal amount of plaque is seen. The common carotid artery is patent. The external carotid artery is patent. The vertebral artery has antegrade flow. COMMENTS ON THE LEFT: Doppler frequency analysis is consistent with 16 to 49 percent diameter reduction of the internal carotid artery. Minimal amount of plaque is seen. The common carotid artery is patent. The external carotid artery is patent. The vertebral artery has antegrade flow. IMPRESSION: Less than 50% diameter reduction in the internal carotid arteries bilaterally. Consider repeat carotid artery duplex in 12 months.
[2016-12-13] MEDS: RESTORIL PO PRN (00:50)
[2016-12-13] MEDS: SYNTHROID PO SCH (06:47)
[2016-12-13] MEDS: TYLENOL PO PRN (08:36)
[2016-12-13] MEDS ORDERED: ATIVAN IV PRN ×3 (09:02)
[2016-12-13] MEDS ORDERED: HALDOL IV PRN (09:02)
[2016-12-13] MEDS: FOLVITE PO SCH (11:03)
[2016-12-13] MEDS: TRANXENE PO SCH (11:03)
[2016-12-13] MEDS: KEPPRA PO SCH ×2 (11:03→21:33)
[2016-12-13] MEDS: VITAMIN B-12 PO SCH (11:03)
[2016-12-13] MEDS: ZESTRIL PO SCH (11:03)
--- NOTE | 2016-12-13 12:25 | Progress Note ---
Subjective - Reason for Consult Consult date: 12/13/16 Reason for consult: Psychiatry Follow-up - Chief Complaint Chief complaint: "Today is a better day" Ms. Marquis is a 51-year-old white female has been admitted to the hospital after having a seizure. At the time of the seizures she was admitted to the inpatient psychiatric facility at [facility] and was there for one day. She was there for the treatment of benzodiazepine and alcohol withdrawal, depression, and anxiety. Today patient is adamant about wanting be discharge. She presents calm, cooperative with a linear thought process. She stated that the trigger for the suicide attempt was grieving the her aunt and brother, also her wants a divorce. Patient has a hx of anxiety and depression. She denies feeling sad, denies hopeless or being helpless. She stated, "I have a lot of motivation to make batter decisions." She state that her maybe rethinking the divorce. She rate her anxiety 6/10, with 10 being the worse because she is ready to leave the hospital and celebrate [place]. She stated that she does not drink alcohol regularly. She denies SI/HI's and AVH's. Mental Status Exam - Vital signs Last Vital Signs Temp 98.4 F 12/13/16 10:38 Pulse 64 12/13/16 08:43 Resp 16 12/13/16 10:38 BP 139/79 12/13/16 10:38 Pulse Ox 99 12/13/16 10:38 - Exam Narrative exam: Appearance: cooperative Behavior: good eye contact Speech: lucid, regular rate and tone Mood: "My mood is much better" Affect: euthymic Thought Process: linear, logical Thought Content: denies SI/HI's and AVH's Cognition: A/O x4 Motor Activity: Ambulatory Insight: fair Judgment: fair Assessment and Plan Impression: Patient has a hx of anxiety and depression. Ms. Marquis is a 51- year-old white female has been admitted to the hospital after having a seizure. At the time of the seizures she was admitted to the inpatient psychiatric facility at [facility] and was there for one day. She was there for the treatment of benzodiazepine and alcohol withdrawal, depression, and anxiety. Today patient is adamant about wanting be discharge. She presents calm, cooperative with a linear thought process. She stated that the trigger for the suicide attempt was grieving the her aunt and brother, also her wants a divorce. She denies SI/HI's and AVH's. Positive for Benzos. Recommendation/Plan: Currently on 1013 for overdosing. Start Prozac 40 mg daily for the treatment of depression and anxiety. Continue CIWA protocol, monitoring only at this point. Continue Tranxene for seizure protocol. Continue monitoring for withdrawal for the next 24 to 48 hours.
--- NOTE | 2016-12-13 13:56 | Progress Note ---
Assessment and Plan 51 yo female with benzodiazepine dependence being treated at the detox center brought to ED a syncopal episode associated with motor convulsive activity during which she bit her tongue but had no incontinence. --Seizure Most likely secondary to BZD withdrawal UDS positive only for benzos Electrolytes within normal limits Evaluated by neurology and AED not recommended getting monitored for alcohol withdrawl --BXD dependence Treated by psychiatry Currently on Tranxene --Hypothyroidism TSH elevated at 13.3 FT4 is normal and will continue current levothyroxine dose --Hypertension No home medications listed BP within normal limits on no medications cont to Monitor --DVT prophylaxis Subjective Date of service: 12/13/16 Interval history: Pt seen and examined She has no SI and states that she is not anxious much she wants to go home denies any chest pain or SOB Objective - Constitutional Vitals: Vital Signs - 12hr 12/13/16 12/13/16 08:43 10:38 Temperature 98.4 F Pulse Rate 64 Respiratory 16 Rate Blood Pressure 139/79 [Right Arm] O2 Sat by Pulse 99 Oximetry General appearance: Present: no acute distress, well-nourished - EENT Eyes: PERRL, EOM intact ENT: hearing intact, clear oral mucosa Ears: bilateral: normal - Neck Neck: supple, normal ROM - Respiratory Respiratory effort: normal Respiratory: bilateral: CTA - Breasts Breasts: deferred - Cardiovascular Rhythm: regular Heart Sounds: Present: S1 & S2. Absent: gallop, rub Extremities: pulses intact, No edema, normal color, Full ROM - Gastrointestinal General gastrointestinal: Present: soft, non-tender, non-distended, normal bowel sounds - Genitourinary Female genitourinary: deferred - Integumentary Integumentary: clear, warm, dry - Musculoskeletal Musculoskeletal: 1, strength equal bilaterally - Neurologic Neurologic: moves all extremities - Psychiatric Psychiatric: memory intact, appropriate mood/affect, intact judgment & insight - Labs CBC & Chem 7: 12/10/16 23:23 12/10/16 23:23 - Imaging and cardiology Chest x-ray: report reviewed CT Scan - head: report reviewed
[2016-12-13] MEDS: HABITROL TD SCH (17:30)
[2016-12-13] MEDS: PROzac PO SCH (17:30)
[2016-12-14] MEDS: SYNTHROID PO SCH (06:15)
--- NOTE | 2016-12-14 09:54 | Discharge Summary ---
Providers - Providers Date of Admission: 12/11/16 02:15 Date of discharge: 12/14/16 Attending physician: FAUSTINO RAHMAN 12/11/16 06:20 Consult to Physician [CONS] Routine Consulting Provider: KATI BROOKS Reason For Exam: SYNCOPE AND SEIZURE ACTIVITY Place consult to:: KATI BROOKS Notified:: aMrisol CHAVARRIA Phone number called:: [phone] Was contact made?: Yes If yes, spoke with:: Voicemail with consult info left for Myra Wallace Time called:: 07:39 Primary care physician: [employer] Hospitalization Condition: Good Hospital course: 51 yo female with benzodiazepine dependence being treated at the detox center ( inpatient psychiatric facility at [facility]) brought to ED with a syncopal episode associated with motor convulsive activity during which she bit her tongue but had no incontinence thought to be seizure. She was at [facility] for the treatment of benzodiazepine and alcohol withdrawal, depression, and anxiety. Today patient was adamant about wanting to be discharge. She presents calm, cooperative with a linear thought process. She stated that the trigger for the suicide attempt was grieving the her aunt and brother, also her wants a divorce. Patient has a hx of anxiety and depression. She denied feeling sad, denies hopeless or being helpless. She stated, "I have a lot of motivation to make batter decisions." She also stated that her maybe rethinking the divorce. She wanted to leave the hospital and celebrate east. She was also seen by psychiatry and cleared for discharge. She stated that she does not drink alcohol regularly. She denies SI/HI's and AVH's. She was discharged home with outpt follow up in medically stable condition. Discharge Diagnosis: --Seizure Most likely secondary to BZD withdrawal UDS positive only for benzos Electrolytes within normal limits Evaluated by neurology and AED not recommended Was monitored for alcohol withdrawl --BXD dependence Treated by psychiatry Currently on Tranxene --Hypothyroidism TSH elevated at 13.3 FT4 is normal and will continue current levothyroxine dose --Hypertension No home medications listed BP within normal limits on no medications --tobacco abuse placed on nicotine patch -- alcohol abuse states she was not taking regularly counselled for cessation Disposition: DISCHARGED TO HOME OR SELFCARE Time spent for discharge: 32 minutes Core Measure Documentation - Palliative Care Palliative Care/ Comfort Measures: Not Applicable - Core Measures Any of the following diagnoses?: none Exam - Constitutional Vitals: Temp Pulse Resp BP Pulse Ox 97.9 F 95 H 16 131/94 96 12/14/16 08:50 12/14/16 09:37 12/14/16 08:50 12/14/16 08:50 12/14/16 08:50 General appearance: Present: no acute distress, well-nourished - EENT Eyes: Present: PERRL ENT: hearing intact, clear oral mucosa - Neck Neck: Present: supple, normal ROM - Respiratory Respiratory effort: normal Respiratory: bilateral: CTA - Cardiovascular Heart Sounds: Present: S1 & S2. Absent: rub, click - Extremities Extremities: pulses symmetrical, No edema Peripheral Pulses: within normal limits - Abdominal General gastrointestinal: Present: soft, non-tender, non-distended, normal bowel sounds Female genitourinary: Present: deferred - Integumentary Integumentary: Present: clear, warm, dry - Musculoskeletal Musculoskeletal: gait normal, strength equal bilaterally - Psychiatric Psychiatric: appropriate mood/affect, intact judgment & insight - Neurologic Neurologic: CNII-XII intact, moves all extremities Plan Activity: advance as tolerated, fall precautions Weight Bearing Status: Weight Bear as Tolerated Diet: low cholesterol, low salt Follow up with: PRIMARY CARE, [Primary Care Provider] - 3-5 Days Prescriptions: Temazepam [Restoril] 15 mg PO QHS PRN #30 capsule PRN Reason: Sleep FLUoxetine [PROzac] 40 mg PO QDAY #30 capsule
[2016-12-14] MEDS: HABITROL TD SCH (10:32)
[2016-12-14] MEDS: VITAMIN B-12 PO SCH (10:32)
[2016-12-14] MEDS: PROzac PO SCH (10:33)
[2016-12-14] MEDS: KEPPRA PO SCH ×2 (10:33→21:21)
[2016-12-14] MEDS: FOLVITE PO SCH (10:33)
[2016-12-14] MEDS: ZESTRIL PO SCH (10:33)
--- NOTE | 2016-12-14 13:12 | Progress Note ---
Subjective - Reason for Consult Consult date: 12/14/16 Reason for consult: psychiatric follow up - Chief Complaint Chief complaint: "I really want to go home" Ms. Boston is a 51-year-old white female has been admitted to the hospital after having a seizure. At the time of the seizures she was admitted to the inpatient psychiatric facility at [facility] and was there for one day. She was there for the treatment of benzodiazepine and alcohol withdrawal, depression, and anxiety. She is focused on discharge. She presents calm, cooperative with a linear thought process. She stated that the trigger for the suicide attempt was grieving the her aunt and brother, also her wants a divorce. Patient has a hx of anxiety and depression. She denies feeling sad, denies hopeless or being helpless. She stated that she does not drink alcohol regularly. She denies SI/HI's and AVH's. She received one dose of tranxene 3.75mg daily for the past 3 days and has not required ativan for withdrawals. No signs and symptoms of withdrawal for benzos/alcohol. Mental Status Exam - Vital signs Last Vital Signs Temp 97.9 F 12/14/16 08:50 Pulse 95 H 12/14/16 09:37 Resp 16 12/14/16 08:50 BP 131/94 12/14/16 08:50 Pulse Ox 96 12/14/16 08:50 - Exam Orientation: time, place, person Affect: anxious Mood: congruent with affect Thought content: other (no si, no hi) Thought Process: Intact, Goal Oriented Perceptions: none Speech: normal rate and pattern Concentration: focused Motor activity: normal Level of consciousness: alert Memory: Intact Sleep Symptoms: None Interaction: cooperative, pleasant Assessment and Plan Impression: Recent benzodiazepine withdrawal which included seizures. She no longer requires detox. She has also had a recent suicide attempt and significant psychosocial stressor. She was on 1013 prior to going to [facility] and now a 1014. She currently denies suicidal ideation and is remorseful for her action. She expresses her desire to return home to her grandson. She is fearful about the long-term effects of her benzodiazepine use. She says she wants to be healthy again. She plans to work on her anxiety, depression/grief in an outpatient setting. She discussed how she was not aware of the consequences of long-term benzodiazepine use. Benzodiazepine use disorder Major depressive disorder Anxiety disorder unspecified Plan: Continue Prozac 40 mg daily for the treatment of depression and anxiety Discontinue tranxene She'll be evaluated by psychiatry tomorrow She is currently not a threat of harm to herself and is not a risk of severe withdrawal at this point. Seizure protocol is already in place Plan for outpatient referrals to mental health programs if her exam is unchanged in one day.
[2016-12-14] MEDS: TRANXENE PO SCH (14:09)
[2016-12-14] MEDS: RESTORIL PO PRN (21:20)
[2016-12-15] MEDS: SYNTHROID PO SCH (06:47)
[2016-12-15 07:37] VITALS: BP 137/91
--- NOTE | 2016-12-15 08:45 | Progress Note ---
Subjective - Reason for Consult Consult date: 12/15/16 Reason for consult: Psychiatry Follow-up - Chief Complaint Chief complaint: "I really want to go home" Ms. Boston is a 51-year-old white female has been admitted to the hospital after having a seizure. At the time of the seizures she was admitted to the inpatient psychiatric facility at [facility] and was there for one day. She was there for the treatment of benzodiazepine and alcohol withdrawal, depression, and anxiety. Today she presents calm, cooperative with a linear thought process. Patient denies being depressed, but anxious about being discharged home. She rate her depression 0/10 with 10 being the worse and her appetite is "good." She denies having any benzos at home, only prozac for her depression. She denies SI/HI's and AVH's. Patient states that she have attended [facility] in [place], [place] for depression and anxiety. Mental Status Exam - Vital signs Last Vital Signs Temp 98.0 F 12/15/16 07:35 Pulse 72 12/15/16 07:35 Resp 18 12/15/16 07:35 BP 137/91 12/15/16 07:35 Pulse Ox 96 12/15/16 07:35 - Exam Narrative exam: MSE: Appearance: cooperative Behavior: good eye contact Speech: lucid, regular rate and tone Mood: "I feel pretty good" Affect: congruent to mood Thought Process: linear, logical Thought Content: denies SI/HI's and AVH's Cognition: A/O x4 Motor Activity: Ambulatory Insight: fair Judgment: fair Assessment and Plan Impression: Recent benzodiazepine withdrawal which included seizures. Today she presents calm, cooperative with a linear thought process. Patient denies being depressed, but anxious about being discharged home. She rate her depression 0/ 10 with 10 being the worse. She denies having any benzos at home, only prozac for her depression. She denies SI/HI's and AVH's. No withdrawals notice during assessment (benzos, etoh). Tranxene D/C'd. Spoke with her father, he would be the person to pick her up from [facility]. She will reside with her parents once discharged. Also, I spoke with her daughter, she is aware of [facility] and would like for her mother to attend the counseling sessions. Patient is no threat to self or anyone else. Recommendation/Plan: Rescind 1013. Continue Prozac 40 mg daily for the treatment of depression and anxiety. Will give her information about outpatient psy services in her local area. Patient can attend counseling sessions at the [facility] in [place], [place] near her home. Safety contract completed with patient. Psychiatry signs off this patient, reconsult when indicated.
[2016-12-15] MEDS: HABITROL TD SCH (09:38)
[2016-12-15] MEDS: FOLVITE PO SCH (09:38)
[2016-12-15] MEDS: ZESTRIL PO SCH (09:38)
[2016-12-15] MEDS: PROzac PO SCH (09:38)
[2016-12-15] MEDS: VITAMIN B-12 PO SCH (09:38)
[2016-12-15] MEDS: KEPPRA PO SCH (09:39)
--- NOTE | 2016-12-15 10:24 | Progress Note ---
Assessment and Plan 51 yo female with benzodiazepine dependence being treated at the detox center brought to ED a syncopal episode associated with motor convulsive activity during which she bit her tongue but had no incontinence. --Seizure Most likely secondary to BZD withdrawal UDS positive only for benzos Electrolytes within normal limits Evaluated by neurology and AED not recommended getting monitored for alcohol withdrawl --BXD dependence Treated by psychiatry stopped Tranxene, monitor clinically for sign of benzo withdrawl --Hypothyroidism TSH elevated at 13.3 FT4 is normal and will continue current levothyroxine dose --Hypertension No home medications listed BP within normal limits on no medications cont to Monitor --DVT prophylaxis Disposition: shayne d/c home tomorrow if no sign of benzo withdrawl. Subjective Date of service: 12/14/16 Interval history: Pt seen and examined She has no SI and states that she is not anxious much she wants to go home denies any chest pain or SOB Objective - Constitutional Vitals: Vital Signs - 12hr 12/15/16 12/15/16 05:47 07:35 Temperature 98.0 F Pulse Rate [ 72 Left Radial] Pulse Rate [ 85 Right] Respiratory 18 18 Rate Blood Pressure 137/91 [Left Arm] Blood Pressure 175/85 [Right Arm] O2 Sat by Pulse 97 96 Oximetry General appearance: Present: no acute distress, well-nourished - EENT Eyes: PERRL, EOM intact ENT: hearing intact, clear oral mucosa Ears: bilateral: normal - Neck Neck: supple, normal ROM - Respiratory Respiratory effort: normal Respiratory: bilateral: CTA - Breasts Breasts: deferred - Cardiovascular Rhythm: regular Heart Sounds: Present: S1 & S2. Absent: gallop, rub Extremities: pulses intact, No edema, normal color, Full ROM - Gastrointestinal General gastrointestinal: Present: soft, non-tender, non-distended, normal bowel sounds - Integumentary Integumentary: clear, warm, dry - Musculoskeletal Musculoskeletal: 1, strength equal bilaterally - Neurologic Neurologic: moves all extremities - Psychiatric Psychiatric: memory intact, appropriate mood/affect, intact judgment & insight - Labs CBC & Chem 7: 12/10/16 23:23 12/10/16 23:23
== END 2016-12-15 12:48 | disposition home or self-care (01) | DRG 101 ==
LOC: ED 19:21 → 4A 12-11 02:15
PROVIDERS: ADMIT Internal Medicine; ATTEND Internal Medicine
DX: R56.9 Unspecified convulsions (principal); F19.239 Other psychoactive substance dependence with withdrawal, unspecified; F19.20 Other psychoactive substance dependence, uncomplicated; I10 Essential (primary) hypertension; F41.9 Anxiety disorder, unspecified; E03.9 Hypothyroidism, unspecified; F32.9 Major depressive disorder, single episode, unspecified; F10.10 Alcohol abuse, uncomplicated; Z60.2 Problems related to living alone; Z71.41 Alcohol abuse counseling and surveillance of alcoholic; Z72.0 Tobacco use
CPT/HCPCS: 36415; 70450; 71010; 72125; 80053; 80307; 81001; 82550; 82553; 82962; 83735; 84439; 84443; 84484; 85025; 85610; 93005; 93010; 93306; 93880; 96361; 96374; J0360; J2060; J2405; J2765; J7030